=== PATIENT | male | born 1990 | race Caucasian/White ===

== ENCOUNTER 2016-11-15 01:48 | Emergency (ER) | payer MEDICAID ==
[~2016-11-15] VITALS: Ht 190.5 cm; Wt 101.7 kg
[~2016-11-15 01:48] MED LIST: HYDR-3307 PO; OXYC-223 PO; POLY17PO5 PO
[2016-11-15] MEDS ORDERED: ALBUTEROL SULFATE 2.5 MG/3 ML ONE (02:29)
[2016-11-15] MEDS ORDERED: ALBUTEROL SULFATE 2.5 MG/3 ML NPPB ONE (02:30)
[2016-11-15 02:54] VITALS: BP 140/76
== END 2016-11-15 03:20 | disposition home or self-care (01) ==
LOC: ED 02:55
DX: J45.41 Moderate persistent asthma with (acute) exacerbation (principal); G43.909 Migraine, unspecified, not intractable, without status migrainosus; Z90.49 Acquired absence of other specified parts of digestive tract
CPT/HCPCS: 71020; 94640; 99284; J7512; J7613

== ENCOUNTER → 2017-07-05 | Outpatient (CLI) | payer MEDICAID ==
[~2017-07-05] MED LIST changes: -OXYC-223 PO; +OXYC-306 PO
== END | disposition home or self-care (01) ==
LOC: RAD 08:04
PROVIDERS: ATTEND Internal Medicine
DX: R91.8 Other nonspecific abnormal finding of lung field (principal); J92.9 Pleural plaque without asbestos; M51.46 Schmorl's nodes, lumbar region; D18.09 Hemangioma of other sites
CPT/HCPCS: 71250

== ENCOUNTER → 2017-08-11 | Outpatient (CLI) | payer MEDICAID ==
[~2017-08-11] MED LIST changes: +GADOBUTROL 10 MMOL/10 ML PFS ONE
== END | disposition home or self-care (01) ==
LOC: CFH 14:33
PROVIDERS: ATTEND Family Medicine
DX: R26.89 Other abnormalities of gait and mobility (principal); R43.0 Anosmia; R43.2 Parageusia; R53.1 Weakness; J32.2 Chronic ethmoidal sinusitis
CPT/HCPCS: 70553; A9585

== ENCOUNTER 2017-12-13 16:03 | Emergency (ER) | payer MEDICAID ==
[~2017-12-13] VITALS: Ht 190.5 cm; Wt 100.0 kg
[~2017-12-13 16:03] MED LIST changes: -GADOBUTROL 10 MMOL/10 ML PFS ONE
[2017-12-13] MEDS ORDERED: LORazepam 1MG TABLET PO ONE (16:30)
[2017-12-13] MEDS ORDERED: ASPIRIN 81 MG TABLET CHEW ONE (16:30)
[2017-12-13] MEDS ORDERED: ASPIRIN 81 MG TABLET CHEW PO ONE (16:30)
[2017-12-13] MEDS ORDERED: LORazepam 1MG TABLET ONE (16:30)
[2017-12-13 16:38] LABS: BASOPHILS # (AUTO) 0.09 x10^3/uL (0-0.1); BASOPHILS % (AUTO) 1 % (0-1); EOSINOPHILS # (AUTO) 0.21 x10^3/uL (0-0.4); EOSINOPHILS % (AUTO) 3 % (1-7); LYMPHOCYTES # (AUTO) 1.32 x10^3/uL (1-3.4); LYMPHOCYTES % (AUTO) 16 % (22-44); MD NO; MEAN CORPUSCULAR HEMOGLOBIN 29.9 pg (27.5-34.5); MEAN CORPUSCULAR HGB CONC 34.4 g/dL (33.2-36.2); MEAN CORPUSCULAR VOLUME 86.9 fL (81-97); MEAN PLATELET VOLUME 8.2 fL (7.4-10.4); MONOCYTES # (AUTO) 0.61 x10^3/uL (0.2-0.8); MONOCYTES % (AUTO) 7 % (2-9); NEUTROPHILS # (AUTO) 6.05 x10^3/uL (1.8-6.8); NEUTROPHILS % (AUTO) 73 % (42-75); PLATELET COUNT 267 x10^3/uL (130-400); RED BLOOD COUNT 5.32 x10^6/uL (4.38-5.82); RED CELL DISTRIBUTION WIDTH 13.9 % (9.4-14.8)
[2017-12-13 16:51] LABS: ALBUMIN 4.3 g/dL (3.4-5.0); ANION GAP 10 mmol/L (5-15); CALCIUM 9.4 mg/dL (8.5-10.1); CHLORIDE 105 mmol/L (98-107)
[2017-12-13 16:56] LABS: TROPONIN I < 0.015 ng/mL (0.000-0.045)
[2017-12-13 18:36] VITALS: BP 146/98
== END 2017-12-13 19:21 | disposition home or self-care (01) ==
LOC: ED 17:41
DX: R07.2 Precordial pain (principal); G43.909 Migraine, unspecified, not intractable, without status migrainosus; J45.909 Unspecified asthma, uncomplicated
CPT/HCPCS: 36415; 71046; 80048; 82040; 82962; 84484; 85025; 85379; 93005; 99285

== ENCOUNTER → 2018-09-22 | Outpatient (CLI) | payer MEDICAID | END | disposition home or self-care (01) | LOC: CFH 10:56 | PROVIDERS: ATTEND Internal Medicine | DX: J84.10 Pulmonary fibrosis, unspecified (principal); R06.89 Other abnormalities of breathing | CPT/HCPCS: 71250 ==

== ENCOUNTER 2018-12-21 07:59 | Outpatient (CLI) | payer MEDICAID ==
[2018-12-21] MEDS ORDERED: TIZA2TAB PO (09:14)
[2018-12-21] MEDS ORDERED: NAPR220C2 PO (09:14)
[2018-12-21] MEDS ORDERED: TIZA4CAP PO (09:14)
[2018-12-21] MEDS ORDERED: ASPI-691 PO (09:14)
[2018-12-21] MEDS ORDERED: ALBU18HF INH (09:14)
== END 2018-12-21 23:59 | disposition home or self-care (01) ==
LOC: STAR 07:59
PROVIDERS: ATTEND Internal Medicine Gastroenterology
DX: Z02.9 Encounter for administrative examinations, unspecified (principal)

== ENCOUNTER 2018-12-25 06:10 | Day surgery (SDC) | payer MEDICAID ==
[~2018-12-25] VITALS: Ht 190.5 cm; Wt 110.7 kg
[~2018-12-25 06:10] MED LIST changes: +ALBU18HF INH; +ASPI-691 PO; +NAPR220C2 PO; +TIZA2TAB PO; +TIZA4CAP PO
[2018-12-25] MEDS ORDERED: LACTATED RINGERS 1,000 ML IV SCH (07:03)
[2018-12-25 07:14] VITALS: BP 142/90
[2018-12-25] MEDS ORDERED: PROPOFOL 10 MG/ML, 20ML ONE (08:00)
[2018-12-25] MEDS ORDERED: PROMETHAZINE 25 MG/ML, 1ML IV PRN (08:30)
[2018-12-25] MEDS ORDERED: KETOROLAC 30 MG/1 ML IV PRN (08:30)
[2018-12-25] MEDS ORDERED: MEPERIDINE/PF 25MG/0.5ML IVPush PRN (08:30)
[2018-12-25] MEDS ORDERED: DIAZEPAM 5 MG/ML, 2ML IVPush PRN (08:30)
[2018-12-25] MEDS ORDERED: OXYcodone 5 MG/5 ML ORAL.SOL UDC PO PRN (08:30)
[2018-12-25] MEDS ORDERED: hydrALAzine 20 MG/ML, 1ML IV PRN (08:30)
[2018-12-25] MEDS ORDERED: ACETAMINOPHEN 325 MG TABLET PO PRN (08:30)
[2018-12-25] MEDS ORDERED: FENTANYL PF 100 MCG/2ML IV PRN (08:30)
[2018-12-25] MEDS ORDERED: ALBUTEROL SULFATE 2.5 MG/3 ML NPPB PRN (08:30)
[2018-12-25] MEDS ORDERED: LABETALOL 5MG/ML, 20ML IV PRN (08:30)
[2018-12-25] MEDS ORDERED: HYDROmorphone 2 MG/ML, 1ML IVPush PRN (08:30)
== END 2018-12-25 09:40 | disposition home or self-care (01) ==
LOC: OUT 06:10
PROVIDERS: ATTEND Internal Medicine Gastroenterology
DX: K22.2 Esophageal obstruction (principal); K29.80 Duodenitis without bleeding; K29.60 Other gastritis without bleeding; K31.7 Polyp of stomach and duodenum; K20.0 Eosinophilic esophagitis; J45.909 Unspecified asthma, uncomplicated; G43.909 Migraine, unspecified, not intractable, without status migrainosus
CPT/HCPCS: 43239; 88305; J2704; J7120; 88342